=== PATIENT | female | born 1945 ===

== ENCOUNTER → 2018-07-30 | Outpatient (CLI) | payer MEDICARE ==
--- NOTE | 2018-07-30 09:01 | XR ---
EXAMINATION TYPE: XR chest 2V DATE OF EXAM: 07/30/2018 HISTORY: Z01.818. REFERENCE: NONE. FINDINGS: Lung volumes are prominent. The lungs are clear. Pleural space are clear. The heart is not enlarged. IMPRESSION: PLEASE CORRELATE FOR COPD.
[2018-07-30 09:04] LABS: Basophils % (A) 1 %; Eosinophils # (A) 0.4 k/uL (0-0.7); Eosinophils % (A) 7 %; HGB 15.5 gm/dL (11.4-16.0); Lymphocytes # (A) 2.1 k/uL (1.0-4.8); Lymphocytes % (A) 36 %; MCH 28.3 pg (25.0-35.0); MCHC 31.7 g/dL (31.0-37.0); MCV 89.3 fL (80.0-100.0); Mean Platelet Volume 6.5; Monocytes # (A) 0.5 k/uL (0-1.0); Monocytes % (A) 9 %; Neutrophils # (A) 2.7 k/uL (1.3-7.7); Neutrophils % (A) 45 %; Platelet Count 248 k/uL (150-450); RBC 5.48 m/uL (3.80-5.40); RDW 12.8 % (11.5-15.5); WBC 5.9 k/uL (3.8-10.6)
[2018-07-30 09:11] LABS: Appearance,Urine Clear (Clear); Bacteria,Urine Rare /hpf; Bilirubin,Urine Negative (Negative); Blood,Urine Negative (Negative); Color,Urine Yellow; Glucose,Urine (UA) Negative (Negative); Hyaline Casts,Urine 1 /lpf (0-2); Ketones,Urine Negative (Negative); Leukocyte Esterase,Urine Small (Negative); Mucus,Urine Rare /hpf; Nitrite,Urine Negative (Negative); PH, Urine 5.5 (5.0-8.0); Protein,Urine Negative (Negative); RBC,Urine 1 /hpf (0-5); Specific Gravity,Urine 1.018 (1.001-1.035); Squamous Epithelial Cell,Urine <1 /hpf (0-4); Urobilinogen,Urine <2.0 mg/dL (<2.0); WBC,Urine 4 /hpf (0-5)
[2018-07-30 09:13] LABS: INR 0.9 (<1.2); Partial Thromboplastin Time 22.8 sec (22.0-30.0); Prothrombin Time 9.9 sec (9.0-12.0)
[2018-07-30 09:20] LABS: Calcium 9.9 mg/dL (8.4-10.2); Potassium 3.6 mmol/L (3.5-5.1)
== END | disposition home or self-care (01) ==
LOC: LABPAT 08:16
PROVIDERS: ATTEND Orthopaedic Surgery Orthopaedic Surgery of the Spine
DX: Z01.818 Encounter for other preprocedural examination (principal); M43.10 Spondylolisthesis, site unspecified; Z79.01 Long term (current) use of anticoagulants; Z01.812 Encounter for preprocedural laboratory examination
CPT/HCPCS: 71046; 80048; 81001; 85025; 85610; 85730; 86850; 86900; 86901; 87070; 93005

== ENCOUNTER 2018-08-10 06:09 | Inpatient (IN) | payer MEDICARE ==
[~2018-08-10 06:09] MED LIST: BACITRACIN 50,000 UNIT, POLYMYXIN B 500,000 UNIT in SODIUM CHLORIDE 0.9% IRRIGATIO 1,00... IRRIGATION ONE; LIDOCAINE 1% 20 ML VIAL (10MG/ML) FOR IV START INTRADERMA PRN; ceFAZolin IN SWFI 2 GM/20 ML SYRINGE IVP ONE
[2018-08-10] MEDS: LACTATED RINGERS 1,000 ML IV SCH (07:11)
[2018-08-10] MEDS ORDERED: ONDANSETRON 4 MG/2 ML VIAL IVP ONE (07:15)
[2018-08-10] MEDS ORDERED: MIDAZOLAM 2 MG/2 ML VIAL ONE (07:23)
[2018-08-10] MEDS ORDERED: fentaNYL (PF) 50 MCG/ML 2 ML AMP ONE (07:23)
[2018-08-10] MEDS ORDERED: PHENYLEPHRINE-0.9% NACL SYG 1 MG/10 ML SYRINGE ONE (07:23)
[2018-08-10] MEDS ORDERED: ROCURONIUM BROMIDE 10 MG/ML 10 ML VIAL IV ONE (07:23)
[2018-08-10] MEDS ORDERED: PROPOFOL 10 MG/ML 20 ML VIAL IV ONE (07:23)
[2018-08-10] MEDS ORDERED: KETAMINE 10 MG/ML 20 ML VIAL ONE (07:23)
[2018-08-10] MEDS ORDERED: SUCCINYLCHOLINE CHLORIDE 100 MG/5 ML SYR IV ONE (07:23)
[2018-08-10] MEDS ORDERED: LIDOCAINE 1% INJ 10MG/ML (20 ML MDV) ONE (07:23)
[2018-08-10] MEDS ORDERED: THROMBIN (BOVINE) 5,000 UNIT VIAL TOPICAL ONE (08:00)
[2018-08-10] MEDS ORDERED: GELATIN SPONGE,ABSORB (LARGE) 1 EACH SPONGE TOPICAL ONE (08:00)
[2018-08-10] MEDS ORDERED: LIDOCAINE 1%-EPI 1:100,000 30 ML VIAL SQ ONE (08:00)
[2018-08-10] MEDS ORDERED: LACTATED RINGERS 1,000 ML IV ONE (09:00)
[2018-08-10] MEDS ORDERED: BENZOCAINE/MENTHOL LOZENG 1 EACH LOZENGE MUCOUS MEM PRN (10:21)
[2018-08-10] MEDS ORDERED: MAGNESIUM HYDROXIDE 2,400 MG/10 ML CUP PO PRN (10:21)
[2018-08-10] MEDS ORDERED: ONDANSETRON 4 MG/2 ML VIAL IVP PRN ×2 (10:21→15:21)
[2018-08-10] MEDS ORDERED: ALBUTEROL NEBULIZED 2.5 MG/3 ML INHALATION PRN ×2 (10:24)
--- NOTE | 2018-08-10 10:30 | P.OP ---
Date of Procedure: 08/10/18 Preoperative Diagnosis: Spondylolisthesis L4 5, severe spinal stenosis L4 5, low back pain, lower extremity radiculopathy, extremity weakness Postoperative Diagnosis: Same Anesthesia: GETA Pathology: none sent Condition: stable Disposition: PACU Description of Procedure: DESCRIPTION OF PROCEDURE(S): BRIEF OPERATIVE NOTE Preoperative Diagnosis: Spondylolisthesis L4 5, severe spinal stenosis L4 5, low back pain, lower extremity radiculopathy, extremity weakness Postoperative Diagnosis: Same Procedure: Laminectomy and decompression L4 5 Minimally invasive Posterior lateral decompression and facet fusion L4 5 Minimally invasive Transforaminal lumbar interbody fusion for a 360 fusion L4 5 Discectomy for decompression L4 5 Placement of interbody graft L4 5 Local autogenous bone grafting Harvesting of bone marrow aspirate via the pedicle of L4 Use of Cell Saver Use of bone graft extenders Surgeon: Dr. Yo Pcat Instructor: Flex Lassiter is present throughout the entire the case persiste nce during positioning, dissection, exposure, visualization, and all crucial elements of the case as well as closure. Anesthesia: General anesthesia per Dr. Warren Estimated blood loss: Approximate 200 mL Complications: None apparent Components implanted: K2M minimally invasive [place] pedicle screw system with a interbody cage 9 mm and 15 mL of DBX bone fibers and 1 large osteoamp Sponge to supplement the local autogenous and bone marrow aspirate graft Disposition: To recovery room in good stable condition. OPERATIVE INDICATIONS The patient has had long-standing issues in their lower back and lower extremities. She is found have a dynamic spondylolisthesis L4 5 and severe spinal stenosis L4 5 which correlated well with her low back and lower extremity symptoms. The patient has been through conservative treatment. She is not having any prolonged benefit despite aggressive conservative treatment. We discussed various treatment options including surgery, and the patient wishes to proceed with surgery We discussed the risk, patient's alternatives and benefits of surgery including but not limited to, risk of bleeding risk of infection, risk of need for further surgery, risk of decreased, loss of motion, muscle function, malunion nonunion, hardware failure, nerve damage, paralysis, heart attack, blindness and . OPERATIVE SUMMARY After discussing all the risks, patient alternatives and benefits at length, the patient elected to proceed with surgical intervention, signed informed consent, and presented for their procedure. The patient was seen and examined in the preoperative holding area and the surgical site was marked. The patient was given antibiotics and brought to the operating room. The patient was sedated and intubated by anesthesia in standard fashion. The patient was positioned on to the operating room table in a prone position on the appropriate frame which was well-padded and well molded. We were careful to pad any bony prominences and pressure points. We were careful to maintain the patient's cervical spine and good neutral alignment and position throughout. The patient was prepped and draped in a normal standard fashion. An appropriate timeout and keystone protocol performed. We were able to proceed with the surgery. The local wound area was infiltrated with local anesthetic. I was able utilize C-arm guidance to establish appropriate position over the pedicles bilaterally at the appropriate levels of L4 5. With the appropriate levels confirmed was able to make small stab incisions over the appropriate pedicle sites bilaterally. Utilizing C-arm in his house able to establish a Jamshidi needle over the lateral aspect of the pedicle and advanced the trocar into the pedicle being careful not to breech superiorly inferiorly medially or laterally. Position was confirmed regularly with AP and lateral images on C- arm. I was able to establish the trocar into the pedicle appropriately into the posterior aspect of the vertebral body bilaterally at the appropriate levels at L4 and L5 bilaterally. This was done at each of the pedicle positions and each of the vertebrae. At L4 on the right specifically, I was able to withdraw approximately 20 mL of bone marrow aspirate for use later in the case as autograft in conjunction with the other allograft and local autogenous bone graft. I was able place the guidewire into the trocar and into the vertebral body appropriately under C-arm guidance. Dissection was taken down over the wire to the appropriate starting position for the screw placed. The appropriate length screw was chosen, threaded over the guidewire and screwed appropriately into the pedicle and vertebral body under C-arm guidance in excellent alignment and position with good bony purchase at L4 and L5 bilaterally. This is done at each of the screw sites at the appropriate levels. With the screws intact I extended the incision to connect the screw hole sites on the most symptomatic side on the left. I dissected down to establish access over the pars and lamina to the base of the spinous process. I was able to expose the facet joint. The capsule the facet was taken down and showed some severe facet arthrosis at the joint. I was able to use a combination of curettes and Kerrison rongeurs and a high-speed drill to take down the facet joint and do a facetectomy. Partial laminectomy was also performed. I was able get excellent foraminal decompression and central decompression with undermining across midline to perform a laminectomy centrally and contralaterally. As able get good central decompression centrally and at the bilateral neural foramen at L4 5. The ligamentum flavum was taken down to further decompress centrally and at bilateral neural foramen. I was able to expose the disc space and visualize the traversing nerve root. Note was made of some disc protrusion at the level causing further compression of the nerve root. I was able to establish a annulotomy at the appropriate level protecting soft tissue and neural structures. Note was made of some disc desiccation at the disc. I performed a complete discectomy with accommodation of curettes and rasps and scrapers and discectomy provided further decompression as well.. I was able get good endplate preparation at the disc space. I sized for the appropriate size interbody spacer protecting the soft tissue and neural structures. The wound was copiously irrigated and suctioned dry. There is no evidence of any dural tear or leak. I was able to pack the disc space with local autogenous bone graft as well as a small amount of bone graft which was also placed into the interbody cage itself. Protecting the soft tissue structures and neural structures I was able place the 9 mm interbody cage in good alignment and good position with good fit and fill at the interbody space. His issues was confirmed with C-arm guidance. Good hemostasis maintained. There is no evidence of any dural tear or leak. The wound was irrigated and suctioned dry. With the hardware intact, intraoperative C-arm imaging was again taken which showed good alignment and position of the hardware at the appropriate levels of L4 and L5. We were then able to measure, contour and place the rods and appropriate hardware bilaterally. I was able to place capcrews, tighten them down, and torque them with the torque screwdriver appropriately. With this intact I was able to place the local autogenous bone graft with additional bone graft enhancer as necessary into the posterior lateral gutters over the decorticated transverse processes. The remainder of the bone graft was placed over the facet joint on the contralateral side after taking down the facet joint capsule. With the bone graft intact, a stable construct, and good decompression at the appropriate levels, we were able to proceed with closure. Good hemostasis was maintained. There is no evidence of dural tear or leak. The fascia was closed for a watertight closure. he subcuticular tissue was closed with absorbable suture. The wound was cleaned and dried and dressed with the appropriate dressing. The drapes were broken down. The patient was gently rolled back onto their hospital bed being careful to maintain their cervical spine and good neutral alignment and position. They were woken up by anesthesia, extubated, and brought to the recovery room in good stable condition. The patient will be admitted to the hospital for appropriate postoperative care, medical management and monitoring. We will continue to follow them closely about the postoperative course.
[2018-08-10] MEDS ORDERED: HYDROmorphone 1 MG/ML 1 ML SYRINGE IVP ONE ×2 (10:36→10:47)
[2018-08-10] MEDS ORDERED: MEPERIDINE 50 MG/ML SYRINGE IVP ONE (10:59)
[2018-08-10] MEDS: SODIUM CHLORIDE 0.9% 1,000 ML IV SCH ×2 (11:26→18:09)
[2018-08-10] MEDS: HYDROmorphone 0.5 MG/0.5 ML SYRINGE IVP PRN ×2 (12:43→18:09)
--- NOTE | 2018-08-10 13:26 | XR ---
Fluoroscopy INDICATION: Pain FINDINGS: Fluoroscopy time: 80 seconds. Images obtained: 2. IMPRESSIONS: 1. Documentation of fluoroscopy.
--- NOTE | 2018-08-10 14:58 | P.CONS ---
History of Present Illness - Reason for Consult Recommendations regarding antidepressive medications - History of Present Illness 73-year-old pleasant female was admitted for elective laminectomy and decompression of L4-L5. Patient's x-ray underwent surgery patient is still having significant pain in the back . Patient did not pass gas yet patient blood pressure is bit elevated because of the pain. Patient uses an KELLY inhibitor and diuretic therapy at home since patient is getting IV fluids diuretic therapy will be held once to control the pain had blood patient is expected to come down. Patient denied any fever chills nausea vomiting and do not have any other lab data available at this time. Review of Systems REVIEW OF SYSTEMS: CONSTITUTIONAL: No fever, no malaise, no fatigue. HEENT: No recent visual problems or hearing problems. Denied any sore throat. CARDIOVASCULAR: No chest pain, orthopnea, PND, no palpitations, no syncope. PULMONARY: No shortness of breath, no cough, no hemoptysis. GASTROINTESTINAL: No diarrhea, no nausea, no vomiting, no abdominal pain. NEUROLOGICAL: No headaches, no weakness, no numbness. HEMATOLOGICAL: Denies any bleeding or petechiae. GENITOURINARY: Denies any burning micturition, frequency, or urgency. MUSCULOSKELETAL/RHEUMATOLOGICAL: As mentioned in HPI ENDOCRINE: Denies any polyuria or polydipsia. The rest of the 14-point review of systems is negative. Past Medical History Past Medical History: Asthma, Cancer, GERD/Reflux, Hyperlipidemia, Hypertension, Musculoskeletal Disorder, Osteoarthritis (OA) Additional Past Medical History / Comment(s): mild tremors, hx. skin cancer, bulging disc-causing pain goes down left hip,leg,calf History of Any Multi-Drug Resistant Organisms: None Reported Additional Past Surgical History / Comment(s): colonoscopy, D & C Past Anesthesia/Blood Transfusion Reactions: No Reported Reaction Smoking Status: Former smoker - Past Family History Father Family Medical History: Cancer Mother Family Medical History: Cancer Medications and Allergies Home Medications Medication Instructions Recorded Confirmed Type Albuterol Inhaler [Ventolin Hfa 1 - 2 puff INHALATION RT-Q6H PRN 08/02/18 08/10/18 History Inhaler] Albuterol Nebulized [Ventolin 2.5 mg INHALATION RT-Q6H PRN 08/02/18 08/10/18 History Nebulized] Amitriptyline HCl [Elavil] 10 mg PO HS 08/02/18 08/10/18 History Aspirin 81 mg PO DAILY 08/02/18 08/10/18 History Cholecalciferol [Vitamin D3] 5,000 unit PO DAILY 08/02/18 08/10/18 History Cranberry Fruit Concentrate [Azo 500 mg PO DAILY PRN 08/02/18 08/10/18 History Cranberry] Irbesartan/Hydrochlorothiazide 1 tab PO HS 08/02/18 08/10/18 History [Irbesartan-Hctz 150-12.5 mg Tb] Pravastatin Sodium [Pravachol] 10 mg PO HS 08/02/18 08/10/18 History Ranitidine HCl [Zantac] 150 mg PO QAM 08/02/18 08/10/18 History Soy Isofla/Blk Cohosh/Mag Bark 155 mg PO DAILY 08/02/18 08/10/18 History [Estroven 155 mg Capsule] Topiramate [Topamax] 25 mg PO HS 08/02/18 08/10/18 History Vit A/Vit C/Vit E/Zinc/Copper 1 cap PO DAILY 08/02/18 08/10/18 History [Vision Formula Softgel] Allergies Allergy/AdvReac Type Severity Reaction Status Date / Time acetaminophen Allergy Unknown Verified 08/10/18 10:40 [From Darvocet-N 100] Iodinated Contrast- Oral and Allergy Itching, Verified 08/10/18 10:40 IV Dye lip & throat swelling propoxyphene Allergy Unknown Verified 08/10/18 10:40 [From Darvocet-N 100] Physical Exam Vitals: Vital Signs Temp Pulse Resp BP Pulse Ox 08/10/18 11:33 78 14 150/74 94 L 08/10/18 11:18 68 14 128/63 97 08/10/18 11:03 69 14 166/78 91 L 08/10/18 10:48 65 15 140/72 98 08/10/18 10:33 67 15 145/76 93 L 08/10/18 10:18 96.8 F L 68 12 157/85 97 08/10/18 06:55 97.7 F 88 16 183/88 94 L Intake and Output 08/09/18 08/10/18 08/10/18 22:59 06:59 14:59 Intake Total 1651 Output Total 350 Balance 1301 Intake: IV 1651 Output: Urine 150 Estimated Blood Loss 200 PHYSICAL EXAMINATION: GENERAL: The patient is alert and oriented x3, not in any acute distress. Well developed, well nourished. HEENT: Pupils are round and equally reacting to light. EOMI. No scleral icterus. No conjunctival pallor. Normocephalic, atraumatic. No pharyngeal erythema. No thyromegaly. CARDIOVASCULAR: S1 and S2 present. No murmurs, rubs, or gallops. PULMONARY: Chest is clear to auscultation, no wheezing or crackles. ABDOMEN: Soft, nontender, sluggish bowel sounds back was not examined and surgical site area was not examined MUSCULOSKELETAL: Deferred to orthopedic surgery EXTREMITIES: No cyanosis, clubbing, or pedal edema. NEUROLOGICAL: Gross neurological examination did not reveal any focal deficits. SKIN: No rashes. Assessment and Plan Plan: -hypertension with mildly elevated blood pressures secondary to pain, patient will be treated and patient will be resumed on KELLY inhibitor hold of diuretic therapy patient is presently receiving IV fluids -Asthma without any acute exacerbation patient appears to have mild intermittent asthma -Gastroesophageal reflux disease Hyperlipidemia -Status post a day 0 L4-L5 lumbar laminectomy: Pain management and due to prophylaxis as per primary service
[2018-08-10 15:20] VITALS: BMI 25.7
[2018-08-10] MEDS ORDERED: ONDANSETRON 4 MG/2 ML VIAL IVP STA (15:20)
[2018-08-10] MEDS: ceFAZolin IN SWFI 2 GM/20 ML SYRINGE IVP SCH (15:24)
[2018-08-10] MEDS: PANTOPRAZOLE 40 MG TABLET PO SCH (15:24)
[2018-08-10] MEDS: HYDROcodone/APAP 5-325MG 1 EACH TAB PO PRN (20:45)
[2018-08-10] MEDS: PRAVASTATIN SODIUM 20 MG TAB PO SCH (20:45)
[2018-08-10] MEDS: LOSARTAN 50 MG TAB PO SCH (20:45)
[2018-08-10] MEDS: TOPIRAMATE 25 MG TAB PO SCH (20:46)
[2018-08-10] MEDS: AMITRIPTYLINE HCL 10 MG TAB PO SCH (20:46)
[2018-08-10] MEDS ORDERED: HYDROCHLOROTHIAZIDE 12.5 MG CAP PO SCH (21:00)
[2018-08-11] MEDS: HYDROcodone/APAP 5-325MG 1 EACH TAB PO PRN ×5 (00:27→22:24)
[2018-08-11] MEDS: ceFAZolin IN SWFI 2 GM/20 ML SYRINGE IVP SCH (00:27)
[2018-08-11] MEDS: LACTATED RINGERS 1,000 ML IV SCH (06:16)
--- NOTE | 2018-08-11 07:51 | P.PN ---
Progress Note - Text Progress Note Date: 08/11/18 Postoperative day #1 Patient is seen and examined today at bedside. The patient has some pain around the surgical site as expected. Pain is being controlled with medication. Physical Exam Afebrile with stable vital signs Abdomen is soft nontender. Chest has good excursion deep and space expiration The incision site is clean dry and intact. No erythema there is no purulence. Extremities have not had neurologic change from prior to surgery. Calves and thighs were soft nontender without evidence of DVT. Assessment/Plan Postoperative day #1 status post decompression and fusion for her spinal listhesis L4 5 Patient is progressing as expected from the surgery. We'll start her mobilizing today as she seems to be doing well. Her nausea and vomiting that she was having overnight seems to be resolving and she feels it so she will be able to eat today. We will continue to increase the patient's mobilization with therapy. We will continue pain control with oral or IV medications. We'll continue to follow patient closely.
[2018-08-11 07:53] LABS: Anion Gap 5 mmol/L; Blood Urea Nitrogen 13 mg/dL (7-17); Calcium 8.3 mg/dL (8.4-10.2); Carbon Dioxide 29 mmol/L (22-30); Chloride 103 mmol/L (98-107); Glucose 109 mg/dL (74-99); Potassium 3.2 mmol/L (3.5-5.1); Sodium 137 mmol/L (137-145)
[2018-08-11 07:54] LABS: Basophils % (A) 0 %; Eosinophils % (A) 0 %; HCT 36.8 % (34.0-46.0); Lymphocytes # (A) 1.2 k/uL (1.0-4.8); Lymphocytes % (A) 9 %; MCH 30.3 pg (25.0-35.0); MCHC 34.1 g/dL (31.0-37.0); MCV 88.9 fL (80.0-100.0); Mean Platelet Volume 6.8; Monocytes # (A) 1.2 k/uL (0-1.0); Monocytes % (A) 8 %; Neutrophils # (A) 11.4 k/uL (1.3-7.7); Neutrophils % (A) 81 %; Platelet Count 158 k/uL (150-450); RBC 4.14 m/uL (3.80-5.40); RDW 13.4 % (11.5-15.5)
[2018-08-11 07:58] LABS: HGB 12.5 gm/dL (11.4-16.0)
[2018-08-11] MEDS: VIT A,C & E-LUTEIN-MINERALS 1 EACH TAB PO SCH (08:34)
[2018-08-11] MEDS: ASPIRIN 81 MG PO SCH (08:35)
[2018-08-11] MEDS: PANTOPRAZOLE 40 MG TABLET PO SCH (08:35)
[2018-08-11] MEDS ORDERED: FAMOTIDINE 20 MG TAB PO SCH (09:00)
[2018-08-11] MEDS ORDERED: NON-FORMULARY DRUG (Soy Isofla/Blk Cohosh/Mag Bark [Estroven 155 Mg Capsule] 155 MG) PO SCH (09:00)
[2018-08-11] MEDS: CHOLECALCIFEROL 1,000 UNIT TAB PO SCH (10:12)
[2018-08-11] MEDS ORDERED: Potassium Replacement Protocol 1 EACH MISC MISCELLANE PRN (10:14)
[2018-08-11] MEDS ORDERED: Magnesium Replacement Protocol 1 EACH MISC MISCELLANE PRN (10:14)
[2018-08-11] MEDS: POTASSIUM CHLORIDE ER 20 MEQ TAB.ER PO SCH ×2 (10:55→13:01)
[2018-08-11] MEDS: MAGNESIUM SULFATE-D5W PMX 1 GM in DEXTROSE/WATER 1 100ML.BAG IVPB SCH ×2 (10:55→13:01)
--- NOTE | 2018-08-11 15:26 | P.PN ---
Subjective No overnight events patient is clinically doing well did not pass gas yet does have bowel sounds did not move her bowel yet pain is very well controlled at this time. Potassium is low which will be replaced Constitutional: Denied any fatigue denied any fever. Cardio vascular: denied any chest pain, palpitations Gastrointestinal denied any nausea vomiting Pulmonary: Denied any shortness of breath cough Neurologic denied any new focal deficits All inpatient medications were reviewed and appropriate changes in these medications as dictated in the interval history and assessment and plan. Objective - Vital Signs Vital signs: Vital Signs Temp 99.5 F 08/11/18 07:00 Pulse 91 08/11/18 07:00 Resp 16 08/11/18 07:00 BP 117/73 08/11/18 07:00 Pulse Ox 96 08/11/18 07:00 Intake & Output 08/10/18 08/11/18 08/11/18 18:59 06:59 18:59 Intake Total 1873 550 700 Output Total 1757 415 5521 Balance 823 150 -400 Intake: IV 1651 Intake, IV Titration 450 700 Amount Magnesium Sulfate-D5w Pmx 200 1 gm In Dextrose/Water 1 100ml.bag @ 100 mls/hr IVPB Q1H [facility] Rx#: [id number] Sodium Chloride 0.9% 1, 450 500 000 ml @ 75 mls/hr IV . [id number] [facility] Rx#:[id number] Oral 222 100 Output: Urine 574 909 1691 Uretheral ([place]) 700 Estimated Blood Loss 200 Other: Voiding Method Indwelling Catheter Indwelling Catheter # Voids 1 - Exam PHYSICAL EXAMINATION: GENERAL: The patient is alert and oriented x3, not in any acute distress. Well developed, well nourished. HEENT: Pupils are round and equally reacting to light. EOMI. No scleral icterus. No conjunctival pallor. Normocephalic, atraumatic. No pharyngeal erythema. No thyromegaly. CARDIOVASCULAR: S1 and S2 present. No murmurs, rubs, or gallops. PULMONARY: Chest is clear to auscultation, no wheezing or crackles. ABDOMEN: Soft, nontender, sluggish bowel sounds . MUSCULOSKELETAL: Deferred to orthopedic surgery EXTREMITIES: No cyanosis, clubbing, or pedal edema. NEUROLOGICAL: Gross neurological examination did not reveal any focal deficits. SKIN: No rashes. - Labs CBC & Chem 7: 08/11/18 07:08 08/11/18 07:08 Labs: Abnormal Lab Results - Last 24 Hours (Table) 08/11/18 08/11/18 Range/Units 07:08 07:08 WBC 14.0 H (3.8-10.6) k/uL Neutrophils # 11.4 H (1.3-7.7) k/uL Monocytes # 1.2 H (0-1.0) k/uL Potassium 3.2 L (3.5-5.1) mmol/L Glucose 109 H (74-99) mg/dL Calcium 8.3 L (8.4-10.2) mg/dL Assessment and Plan Plan: -hypertension with mildly elevated blood pressures secondary to pain, patient will be treated and patient was resumed on KELLY inhibitor hold of diuretic therapy patient is presently receiving IV fluids. Patient is mildly hypokalemic secondary to IV fluids which will be replaced -Asthma without any acute exacerbation patient appears to have mild intermittent asthma -Gastroesophageal reflux disease Hyperlipidemia -Status post a day 0 L4-L5 lumbar laminectomy: Pain management and due to prophylaxis as per primary service. Patient is clinically doing well regarding pain.
[2018-08-11] MEDS: SODIUM CHLORIDE 0.9% 1,000 ML IV SCH (16:40)
[2018-08-11] MEDS: TOPIRAMATE 25 MG TAB PO SCH (20:04)
[2018-08-11] MEDS: LOSARTAN 50 MG TAB PO SCH (20:05)
[2018-08-11] MEDS: AMITRIPTYLINE HCL 10 MG TAB PO SCH (20:05)
[2018-08-11] MEDS: PRAVASTATIN SODIUM 20 MG TAB PO SCH (20:05)
[2018-08-12] MEDS: SODIUM CHLORIDE 0.9% 1,000 ML IV SCH ×2 (02:48→17:41)
[2018-08-12] MEDS: HYDROcodone/APAP 5-325MG 1 EACH TAB PO PRN ×5 (03:49→20:01)
[2018-08-12] MEDS: LACTATED RINGERS 1,000 ML IV SCH (05:08)
[2018-08-12] MEDS: CHOLECALCIFEROL 1,000 UNIT TAB PO SCH (07:51)
[2018-08-12] MEDS: PANTOPRAZOLE 40 MG TABLET PO SCH (07:51)
[2018-08-12] MEDS: ASPIRIN 81 MG PO SCH (07:51)
[2018-08-12] MEDS: VIT A,C & E-LUTEIN-MINERALS 1 EACH TAB PO SCH (07:51)
--- NOTE | 2018-08-12 08:47 | P.PN ---
Progress Note - Text Progress Note Date: 08/12/18 Orthopedic Spine Patient is a pleasant 73-year-old female who is seen and examined at the bedside following posterior lateral decompression and fusion performed Wednesday. Postoperatively she was having significant nausea with vomiting. This has improved. She is no longer experiencing nausea or vomiting. Her pain is continued to be controlled with oral [place] and Dilaudid IV but states she has not received Dilaudid since yesterday. She has been able to work with physical therapy to increase mobility and ambulation. She has continued to have ongoing pain at the surgical sites significant with movement of her spine. She feels all of her symptoms may be due to muscle. She does feel her back pain is better controlled with standing and with lying flat in bed. She is eating and voiding without significant difficulty. She does feel she would be ready for discharge home tomorrow as she will be staying with her son locally until she feels better to return home in [place], [place]. She feels she is improving postoperatively. Currently does not complain of nausea, vomiting, fever, or chills. Patient has a medical history including hypertension, hyperlipidemia, and asthma. Physical Exam Lumbar Fusion: Status post surgical day number 2 Patient is awake, alert, and oriented 3 Vital signs stable Good chest excursion with deep inspiration and expiration Abdomen soft nontender Dorsiflexion, plantarflexion, and extensor hallucis longus positive sustained bilaterally No signs or symptoms of DVT; no calf pain; pneumatic cuffs intact bilateral lower extremities Dressing has evidence of blood on the dressing but dressing is intact without sign of obvious active drainage; no erythema, purulence, or signs of infection Neurovascularly intact bilaterally lower extremities Assessment: L4-5 minimally invasive posterior lateral decompression and fusion with transforaminal lumbar interbody fusion Low back pain Lumbar muscle spasm L4-5 spondylolisthesis Lower extremity radiculopathy with weakness History of hypertension, hyperlipidemia, and asthma Plan: 1. Ambulate as tolerated; work with Physical Therapy to increase mobilization; patient may use a wheeled walker to aid in ambulation as needed; Prescription has also been signed for a walker and provided the case management. Patient may use his walker to aid in ambulation as needed 2. Continue pain control with IV and oral medications; we will continue weaning the patient off IV pain medication in anticipation for discharge tomorrow, 08/13/2018 MAPS has been reviewed today, 08/12/2018, with an Overall Overdose Risk Score of 000 as patient is in the [facility] system but has no records of prescribed medication over the past 2 years. An "Opiod Start Talking" Forn has been signed by the patient and myself in place in the patient's chart. A prescription has been written for [place] 5 mg/325 mg take 1 tablet every 4 hours as needed for pain, dispense #42 Prescription has been printed, signed, and placed in the patient's chart. Patient is also given a prescription for baclofen 10 mg which she may take 1 tab every 8 hours as needed for muscle spasm, dispensed #60 which has also been printed, signed, and placed in the patient's chart 3. Dressing will be changed to Telfa and Tegaderm 4. Medical management can continue to manage patient for patient's other medical issues 5. We will continue to follow the patient closely; if patient is able to continue with improvement today, we will plan for discharge tomorrow, 08/14/1999 6. Patient can follow-up with Flex Agosto PA-C or Dr. Avni Yo at [facility] in 2-3 weeks following discharge
[2018-08-12 09:29] LABS: Basophils % (A) 0 %; Eosinophils # (A) 0.1 k/uL (0-0.7); Eosinophils % (A) 1 %; HGB 12.4 gm/dL (11.4-16.0); Lymphocytes # (A) 1.2 k/uL (1.0-4.8); Lymphocytes % (A) 11 %; MCH 29.1 pg (25.0-35.0); MCHC 32.7 g/dL (31.0-37.0); MCV 89.1 fL (80.0-100.0); Mean Platelet Volume 7.2; Monocytes # (A) 0.9 k/uL (0-1.0); Monocytes % (A) 8 %; Neutrophils % (A) 79 %; Platelet Count 162 k/uL (150-450); RBC 4.26 m/uL (3.80-5.40); RDW 13.8 % (11.5-15.5); WBC 11.3 k/uL (3.8-10.6)
[2018-08-12 09:32] LABS: Anion Gap 3 mmol/L; Blood Urea Nitrogen 13 mg/dL (7-17); Calcium 8.7 mg/dL (8.4-10.2); Carbon Dioxide 29 mmol/L (22-30); Chloride 108 mmol/L (98-107); Glucose 114 mg/dL (74-99); Magnesium 2.1 mg/dL (1.6-2.3); Potassium 3.9 mmol/L (3.5-5.1); Sodium 140 mmol/L (137-145)
--- NOTE | 2018-08-12 14:48 | P.PN ---
Subjective No overnight events patient is clinically doing well did not pass gas yet does have bowel sounds did not move her bowel yet pain is very well controlled at this time. Potassium is low which will be replaced 08/12/2018 Patient did pass gas did not move her bowel yet clinically doing well still has some pain. Constitutional: Denied any fatigue denied any fever. Cardio vascular: denied any chest pain, palpitations Gastrointestinal denied any nausea vomiting Pulmonary: Denied any shortness of breath cough Neurologic denied any new focal deficits All inpatient medications were reviewed and appropriate changes in these medications as dictated in the interval history and assessment and plan. Objective - Vital Signs Vital signs: Vital Signs Temp 98.2 F 08/12/18 07:00 Pulse 97 08/12/18 07:00 Resp 16 08/12/18 07:00 BP 133/71 08/12/18 07:00 Pulse Ox 94 L 08/12/18 07:00 Intake & Output 08/11/18 08/12/18 08/12/18 18:59 06:59 18:59 Intake Total 700 937.5 Output Total 1100 Balance -400 937.5 Intake: Intake, IV Titration 700 262.5 Amount Magnesium Sulfate-D5w Pmx 200 1 gm In Dextrose/Water 1 100ml.bag @ 100 mls/hr IVPB Q1H [facility] Rx#: [id number] Sodium Chloride 0.9% 1, 500 262.5 000 ml @ 75 mls/hr IV . [id number] [facility] Rx#:[id number] Oral 675 Output: Urine 1100 Uretheral ([place]) 700 Other: Voiding Method Toilet Toilet Toilet # Voids 1 3 - Exam PHYSICAL EXAMINATION: GENERAL: The patient is alert and oriented x3, not in any acute distress. Well developed, well nourished. HEENT: Pupils are round and equally reacting to light. EOMI. No scleral icterus. No conjunctival pallor. Normocephalic, atraumatic. No pharyngeal erythema. No thyromegaly. CARDIOVASCULAR: S1 and S2 present. No murmurs, rubs, or gallops. PULMONARY: Chest is clear to auscultation, no wheezing or crackles. ABDOMEN: Soft, nontender, sluggish bowel sounds . MUSCULOSKELETAL: Deferred to orthopedic surgery EXTREMITIES: No cyanosis, clubbing, or pedal edema. NEUROLOGICAL: Gross neurological examination did not reveal any focal deficits. SKIN: No rashes. - Labs CBC & Chem 7: 08/12/18 08:45 08/12/18 08:45 Labs: Abnormal Lab Results - Last 24 Hours (Table) 08/12/18 08/12/18 Range/Units 08:45 08:45 WBC 11.3 H (3.8-10.6) k/uL Neutrophils # 9.0 H (1.3-7.7) k/uL Chloride 108 H (98-107) mmol/L Glucose 114 H (74-99) mg/dL Assessment and Plan Plan: -hypertension with mildly elevated blood pressures secondary to pain, patient will be treated and patient was resumed on KELLY inhibitor hold of diuretic therapy patient is presently receiving IV fluids. Patient is mildly hypokalemic secondary to IV fluids which will be replaced -Asthma without any acute exacerbation patient appears to have mild intermittent asthma -Gastroesophageal reflux disease Hyperlipidemia -Status post a day 0 L4-L5 lumbar laminectomy: Pain management and due to prophylaxis as per primary service. Patient is clinically doing well regarding pain.
[2018-08-12] MEDS: PRAVASTATIN SODIUM 20 MG TAB PO SCH (19:58)
[2018-08-12] MEDS: LOSARTAN 50 MG TAB PO SCH (19:58)
[2018-08-12] MEDS: TOPIRAMATE 25 MG TAB PO SCH (19:59)
[2018-08-12] MEDS: AMITRIPTYLINE HCL 10 MG TAB PO SCH (19:59)
[2018-08-13] MEDS: HYDROcodone/APAP 5-325MG 1 EACH TAB PO PRN ×2 (02:17→07:48)
[2018-08-13] MEDS: LACTATED RINGERS 1,000 ML IV SCH (03:46)
[2018-08-13] MEDS: SODIUM CHLORIDE 0.9% 1,000 ML IV SCH (03:46)
[2018-08-13] MEDS: CHOLECALCIFEROL 1,000 UNIT TAB PO SCH (07:48)
[2018-08-13] MEDS: PANTOPRAZOLE 40 MG TABLET PO SCH (07:48)
[2018-08-13] MEDS: VIT A,C & E-LUTEIN-MINERALS 1 EACH TAB PO SCH (07:48)
[2018-08-13] MEDS: ASPIRIN 81 MG PO SCH (07:48)
[2018-08-13 08:23] VITALS: BP 155/84; PULSE 93; RESP 16; TEMP 98.6
--- NOTE | 2018-08-13 10:04 | P.DS ---
Providers Date of admission: 08/10/18 06:09 Attending physician: Angeles Yo Consults: 08/10/18 10:21 Consult Physician Routine Consulting Provider: Renny Munoz Consult Reason/Comments: Medical management Do you want consulting provider notified?: Yes 08/10/18 12:04 Consult Physician Routine Consulting Provider: Leah Olivo Consult Reason/Comments: medical management Do you want consulting provider notified?: Already Contacted Primary care physician: Renny Munoz [facility] Hospital Course: The patient presented on the day of admission as per their operative note. She underwent decompression and fusion at L4 5 for spondylolisthesis with severe stenosis lower extremity radiculopathy. She feels her back is making improvement in her legs are doing well. She denies any new changes in her lower extremities. She denies any nausea or vomiting. She is passing gas but has not yet had a bowel movement. Physical Exam The incision site is clean dry and intact. There is no erythema no drainage. There is no purulence no evidence of infection. Her back incision site is clear Abdomen soft and nontender. There is no bloating and there is no distention. Chest has good excursion with deep inspiration and expiration. The patient has active and passive range of motion intact at the upper and lower extremities. There is no acute change in neurologic status. She has sustained dorsal flexion plantar flexion and [facility] Hospital Course Postoperative day #3 status post minimally invasive decompression and fusion L4 5 for her spondylolisthesis with spinal stenosis and lower extremity radiculopathy which is improving well and centrally. The patient has been making good progress postoperatively. They have completed the prophylactic antibiotics without any signs or symptoms of infection. The patient has been able to advance their diet, and is tolerating diet adequately. The pain was initially controlled with IV medications and is now controlled appropriately with oral medications. The patient has been able to increase their mobilization. The patient has progressed appropriately. I think they are in good stable condition for discharge today. They will be sent home with appropriate prescriptions. I answered their questions to the best of my ability in a language that they can understand and they are agreeable with the plan. She has a walker already at home and have arranged for follow-up as well. A prescription has been sent in for pain medications. Her. They will follow up as directed in approximately 2 weeks or sooner if she is having problems. Patient Condition at Discharge: Good Plan - Discharge Summary Discharge Rx Participant: Yes New Discharge Prescriptions: New Baclofen 10 mg PO TID PRN #60 tab PRN Reason: Muscle Spasm HYDROcodone/APAP 5-325MG [[place] 5] 1 each PO Q4HR PRN #42 tab PRN Reason: Pain No Action Albuterol Nebulized [Ventolin Nebulized] 2.5 mg INHALATION RT-Q6H PRN PRN Reason: Dyspnea Albuterol Inhaler [Ventolin Hfa Inhaler] 1 - 2 puff INHALATION RT-Q6H PRN PRN Reason: Dyspnea Topiramate [Topamax] 25 mg PO HS Ranitidine HCl [Zantac] 150 mg PO QAM Pravastatin Sodium [Pravachol] 10 mg PO HS Amitriptyline HCl [Elavil] 10 mg PO HS Cholecalciferol [Vitamin D3] 5,000 unit PO DAILY Aspirin 81 mg PO DAILY Vit A/Vit C/Vit E/Zinc/Copper [Vision Formula Softgel] 1 cap PO DAILY Soy Isofla/Blk Cohosh/Mag Bark [[place]ro[place] 155 mg Capsule] 155 mg PO DAILY Irbesartan/Hydrochlorothiazide [Irbesartan-Hctz 150-12.5 mg Tb] 1 tab PO HS Cranberry Fruit Concentrate [Azo Cranberry] 500 mg PO DAILY PRN PRN Reason: urinary symptoms Discharge Medication List Albuterol Inhaler [Ventolin Hfa Inhaler] 1 - 2 puff INHALATION RT-Q6H PRN 08/02/18 [History] Albuterol Nebulized [Ventolin Nebulized] 2.5 mg INHALATION RT-Q6H PRN 08/02/18 [History] Amitriptyline HCl [Elavil] 10 mg PO HS 08/02/18 [History] Aspirin 81 mg PO DAILY 08/02/18 [History] Cholecalciferol [Vitamin D3] 5,000 unit PO DAILY 08/02/18 [History] Cranberry Fruit Concentrate [Azo Cranberry] 500 mg PO DAILY PRN 08/02/18 [History] Irbesartan/Hydrochlorothiazide [Irbesartan-Hctz 150-12.5 mg Tb] 1 tab PO HS 08/02/18 [History] Pravastatin Sodium [Pravachol] 10 mg PO HS 08/02/18 [History] Ranitidine HCl [Zantac] 150 mg PO QAM 08/02/18 [History] Soy Isofla/Blk Cohosh/Mag Bark [[place] 155 mg Capsule] 155 mg PO DAILY 08/02/18 [History] Topiramate [Topamax] 25 mg PO HS 08/02/18 [History] Vit A/Vit C/Vit E/Zinc/Copper [Vision Formula Softgel] 1 cap PO DAILY 08/02/18 [History] Baclofen 10 mg PO TID PRN #60 tab 08/12/18 [Rx] HYDROcodone/APAP 5-325MG [[place] 5] 1 each PO Q4HR PRN #42 tab 08/12/18 [Rx] Follow up Appointment(s)/Referral(s): [facility] [NON-STAFF] - As Needed (walker) Flex Agosto PAC [PHYSICIAN HEALTH RECORD TECHNICIAN] - 08/26/18 11:00 am (Patient may follow-up with Flex Agosto PA-C or Dr. Avni Yo at [facility] in 2-3 weeks following discharge. ) Activity/Diet/Wound Care/Special Instructions: 1. Patient may shower with Tegaderm dressing intact. 2. Patient may remove Tegaderm dressing in 3 days and shower without a dressing at that time. 3. Patient should keep Steri-Strips intact and allow them to fall off naturally. 4. Patient should refrain from driving until at least after their first follow- up appointment in the office. 5. Patient should avoid excessive bending, twisting, and lifting; no lifting greater than 10 pounds 6. Patient may use walker to aid in ambulation as needed 7. Do not soak in tub 8. Take medications as prescribed MAPS has been reviewed today, 08/12/2018, with an Overall Overdose Risk Score of 000 as patient is in the [facility] system but has no records of prescribed medication over the past 2 years. An "Opiod Start Talking" Forn has been signed by the patient and myself in place in the patient's chart. A prescription has been written for [place] 5 mg/325 mg take 1 tablet every 4 hours as needed for pain, dispense #42 Prescription has been printed, signed, and placed in the patient's chart. Patient is also given a prescription for baclofen 10 mg which she may take 1 tab every 8 hours as needed for muscle spasm, dispensed #60 which has also been printed, signed, and placed in the patient's chart Discharge Disposition: HOME SELF-CARE
== END 2018-08-13 12:05 | disposition home or self-care (01) | DRG 455 ==
LOC: 2ORMAIN 06:09 → 4SSUR 10:21
PROVIDERS: ADMIT Orthopaedic Surgery Orthopaedic Surgery of the Spine; ATTEND Orthopaedic Surgery Orthopaedic Surgery of the Spine
PROC: 0SG0071 Fusion of Lumbar Vertebral Joint with Autologous Tissue Substitute, Posterior Approach, Posterior Column, Open Approach (ICD-10-PCS; 2018-08-10)
PROC: 0ST20ZZ Resection of Lumbar Vertebral Disc, Open Approach (ICD-10-PCS; 2018-08-10)
PROC: 0SG00AJ Fusion of Lumbar Vertebral Joint with Interbody Fusion Device, Posterior Approach, Anterior Column, Open Approach (ICD-10-PCS; principal; 2018-08-10 07:30)
DX: M48.061 Spinal stenosis, lumbar region without neurogenic claudication (principal); M43.16 Spondylolisthesis, lumbar region; M51.16 Intervertebral disc disorders with radiculopathy, lumbar region; K21.9 Gastro-esophageal reflux disease without esophagitis; I10 Essential (primary) hypertension; M62.838 Other muscle spasm; J45.20 Mild intermittent asthma, uncomplicated; R25.1 Tremor, unspecified; E78.5 Hyperlipidemia, unspecified; M19.90 Unspecified osteoarthritis, unspecified site; Z79.82 Long term (current) use of aspirin; Z79.899 Other long term (current) drug therapy; Z88.5 Allergy status to narcotic agent; Z87.891 Personal history of nicotine dependence; Z85.828 Personal history of other malignant neoplasm of skin; Z88.6 Allergy status to analgesic agent; Z91.041 Radiographic dye allergy status; Z80.9 Family history of malignant neoplasm, unspecified
CPT/HCPCS: 72100; 80048; 83735; 84132; 85025; 86850; 86900; 86901